=== PATIENT | female | born 1945 | race Caucasian/White ===

== ENCOUNTER 2016-10-02 10:18 | Emergency (ER) | payer OTHER ==
[~2016-10-02] VITALS: Ht 162.6 cm; Wt 71.0 kg
[~2016-10-02 10:18] MED LIST: ASPI81TA82 PO; CARD120C4 PO; LEVO.1 PO; SYNT137T PO
[2016-10-02 10:21] VITALS: BP 133/76; PULSE 76; RESP 16; TEMP 97.8; O2SAT 97
[2016-10-02] MEDS ORDERED: AZIT500T2 PO (10:44)
[2016-10-02] MEDS ORDERED: ATOR40TA16 PO (10:44)
[2016-10-02] MEDS ORDERED: LEVO.125 PO (10:44)
[2016-10-02] MEDS ORDERED: ASPI1TAB69 PO (10:44)
[2016-10-02] MEDS ORDERED: SODIUM CHLORIDE 0.9% FLUSH 5 ML FLUSH IVF PRN (11:00)
[2016-10-02] MEDS ORDERED: SODIUM CHLOR 0.9% 1000 ML INJ 1,000 ML IV ONE (11:00)
[2016-10-02 11:02] VITALS: RESP 16; O2SAT 97
--- NOTE | 2016-10-02 11:05 | PD ---
HPI Chief Complaint: General Weakness Time Seen by Provider: 10:40 Travel History International Travel<30 days: No Contact w/Intl Traveler<30days: No Traveled to known affect area: No History of Present Illness HPI The patient is a 70-year-old female who presents to the emergency department for generalized weakness. The patient states she developed cough and cold symptoms 1 week ago with a dry nonproductive cough, chills, body aches , and subsequent diarrhea. The patient does note decreased appetite without any nausea or vomiting. The patient describes her diarrhea as loose, one to 2 episodes every several hours, slightly improving over the last 24 hours. The patient was seen by a physician in urgent care office, Dr. Brizuela, and administered 3 doses of Rocephin and placed on Zithromax for one week. However , patient states her symptoms continue. The patient states she has had a decreased appetite, was able to eat a fish sandwich yesterday, but only had water this morning with her pills. Patient denies any vomiting or abdominal pain. The patient did not receive an influenza vaccination or pneumococcal vaccination this year. The patient's primary physician resides in [place]. PFSH Past Medical History Hx Anticoagulant Therapy: Yes (81 MG ASA) Cardiovascular Problems: Yes (AFIB) High Cholesterol: Yes Diminished Hearing: No Thyroid Disease: Yes Influenza Vaccination: No ?: Not Past Surgical History Cholecystectomy: Yes Gynecologic Surgery: Yes (PROLAPSED UTERUS WITH MESH) Social History Alcohol Use: Yes (2 VODKA TONIC MÁRQUEZ) Tobacco Use: No Substance Use: No Allergies-Medications (Allergen,Severity, Reaction): Coded Allergies: No Known Allergies (Unverified , 10/02/16) Reported Meds & Prescriptions Reported Meds & Active Scripts Active Reported Atorvastatin (Atorvastatin Calcium) 40 Mg Tab 40 Mg PO HS Azithromycin 500 Mg Tab 500 Mg PO DAILY Synthroid (Levothyroxine Sodium) 125 Mcg Tab 125 Mcg PO DAILY Aspirin 81 Mg Tabdr 81 Mg PO DAILY Review of Systems Except as stated in HPI: all other systems reviewed are Neg General / Constitutional: Positive: Chills, No: Fever Cardiovascular: No: Chest Pain or Discomfort Respiratory: Positive: Cough, No: Shortness of Breath Gastrointestinal: Positive: Diarrhea, No: Nausea, Vomiting Musculoskeletal: Positive: Myalgias (initially had myalgias which have resolved ), Weakness Skin: No Rash Neurologic: Positive: Weakness Physical Exam Narrative GENERAL: Awake, alert, nontoxic-appearing 70-year-old female who appears her stated age and is in no acute respiratory distress. SKIN: Warm and dry. HEAD: Atraumatic. Normocephalic. EYES: Pupils equal and round. No scleral icterus. No injection or drainage. ENT: No nasal bleeding or discharge. Mucous membranes pink and moist. No erythema or exudate noted. TMs are translucent and EACs are clear. NECK: Trachea midline. No JVD. CARDIOVASCULAR: Regular rate and rhythm. No murmur appreciated. RESPIRATORY: No accessory muscle use. Clear to auscultation. Breath sounds equal bilaterally. GASTROINTESTINAL: Abdomen soft, non-tender, nondistended. Well-healed midline scar inferior to the umbilicus. No rebound tenderness. MUSCULOSKELETAL: No obvious deformities. No clubbing. No cyanosis. No edema. NEUROLOGICAL: Awake and alert. No obvious cranial nerve deficits. Motor grossly within normal limits. Normal speech. PSYCHIATRIC: Appropriate mood and affect; insight and judgment normal. Data Data Last Documented VS Vital Signs Date Time Temp Pulse Resp B/P Pulse Ox O2 Delivery O2 Flow Rate FiO2 10/02/16 12:03 Room Air 10/02/16 12:03 68 16 134/60 100 10/02/16 10:21 97.8 Orders Complete Blood Count With Diff (10/02/16 10:59) Comprehensive Metabolic Panel (10/02/16 10:59) Magnesium (Mg) (10/02/16 10:59) Ckmb (Isoenzyme) Profile (10/02/16 10:59) Troponin I (10/02/16 10:59) Urinalysis - C+S If Indicated (10/02/16 10:59) Iv Access Insert/Monitor (10/02/16 10:59) Electrocardiogram (10/02/16 10:59) Ecg Monitoring (10/02/16 10:59) Oximetry (10/02/16 10:59) Oxygen Administration (10/02/16 10:59) Chest, Single Ap (10/02/16 10:59) Sodium Chloride 0.9% Flush (Ns Flush) (10/02/16 11:00) Sodium Chlor 0.9% 1000 Ml Inj (Ns 1000 M (10/02/16 11:00) CKMB (10/02/16 11:15) CKMB% (10/02/16 11:15) Labs Laboratory Tests Test 10/02/16 10/02/16 11:15 12:01 White Blood Count 3.2 TH/MM3 Red Blood Count 4.83 MIL/MM3 Hemoglobin 14.1 GM/DL Hematocrit 43.1 % Mean Corpuscular Volume 89.2 FL Mean Corpuscular Hemoglobin 29.2 PG Mean Corpuscular Hemoglobin 32.7 % Concent Red Cell Distribution Width 12.8 % Platelet Count 252 TH/MM3 Mean Platelet Volume 6.9 FL Neutrophils (%) (Auto) 46.3 % Lymphocytes (%) (Auto) 39.1 % Monocytes (%) (Auto) 11.9 % Eosinophils (%) (Auto) 2.2 % Basophils (%) (Auto) 0.5 % Neutrophils # (Auto) 1.4 TH/MM3 Lymphocytes # (Auto) 1.3 TH/MM3 Monocytes # (Auto) 0.4 TH/MM3 Eosinophils # (Auto) 0.1 TH/MM3 Basophils # (Auto) 0.0 TH/MM3 CBC Comment DIFF FINAL Differential Comment Sodium Level 141 MEQ/L Potassium Level 3.9 MEQ/L Chloride Level 105 MEQ/L Carbon Dioxide Level 27.7 MEQ/L Anion Gap 8 MEQ/L Blood Urea Nitrogen 9 MG/DL Creatinine 0.72 MG/DL Estimat Glomerular Filtration 80 ML/MIN Rate Random Glucose 99 MG/DL Calcium Level 8.7 MG/DL Magnesium Level 2.0 MG/DL Total Bilirubin 0.3 MG/DL Aspartate Amino Transf 25 U/L (AST/SGOT) Alanine Aminotransferase 26 U/L (ALT/SGPT) Alkaline Phosphatase 63 U/L Total Creatine Kinase 304 U/L Creatine Kinase MB 1.7 NG/ML Creatine Kinase MB % 0.6 % Troponin I LESS THAN 0.02 NG/ML Total Protein 7.5 GM/DL Albumin 3.6 GM/DL Urine Collection Type CLEAN CATCH Urine Color YELLOW Urine Turbidity CLEAR Urine pH 5.5 Urine Specific [place] 1.022 Urine Protein NEG mg/dL Urine Glucose (UA) NEG mg/dL Urine Ketones TRACE mg/dL Urine Occult Blood TRACE Urine Nitrite NEG Urine Bilirubin NEG Urine Leukocyte Esterase NEG Urine RBC 4-9 /hpf Urine WBC 0-2 /hpf Urine Squamous Epithelial 0-5 /hpf Cells Microscopic Urinalysis Comment CULT NOT INDICATED Urine Collection Time 12:01 [facility] Medical Decision Making Medical Screen Exam Complete: Yes Emergency Medical Condition: Yes Medical Record Reviewed: Yes Interpretation(s) EKG reveals normal sinus rhythm with a rate of 60. No ischemic changes or ectopy noted. Laboratory Tests Test 10/02/16 10/02/16 11:15 12:01 White Blood Count 3.2 TH/MM3 Red Blood Count 4.83 MIL/MM3 Hemoglobin 14.1 GM/DL Hematocrit 43.1 % Mean Corpuscular Volume 89.2 FL Mean Corpuscular Hemoglobin 29.2 PG Mean Corpuscular Hemoglobin 32.7 % Concent Red Cell Distribution Width 12.8 % Platelet Count 252 TH/MM3 Mean Platelet Volume 6.9 FL Neutrophils (%) (Auto) 46.3 % Lymphocytes (%) (Auto) 39.1 % Monocytes (%) (Auto) 11.9 % Eosinophils (%) (Auto) 2.2 % Basophils (%) (Auto) 0.5 % Neutrophils # (Auto) 1.4 TH/MM3 Lymphocytes # (Auto) 1.3 TH/MM3 Monocytes # (Auto) 0.4 TH/MM3 Eosinophils # (Auto) 0.1 TH/MM3 Basophils # (Auto) 0.0 TH/MM3 CBC Comment DIFF FINAL Differential Comment Sodium Level 141 MEQ/L Potassium Level 3.9 MEQ/L Chloride Level 105 MEQ/L Carbon Dioxide Level 27.7 MEQ/L Anion Gap 8 MEQ/L Blood Urea Nitrogen 9 MG/DL Creatinine 0.72 MG/DL Estimat Glomerular Filtration 80 ML/MIN Rate Random Glucose 99 MG/DL Calcium Level 8.7 MG/DL Magnesium Level 2.0 MG/DL Total Bilirubin 0.3 MG/DL Aspartate Amino Transf 25 U/L (AST/SGOT) Alanine Aminotransferase 26 U/L (ALT/SGPT) Alkaline Phosphatase 63 U/L Total Creatine Kinase 304 U/L Creatine Kinase MB 1.7 NG/ML Creatine Kinase MB % 0.6 % Troponin I LESS THAN 0.02 NG/ML Total Protein 7.5 GM/DL Albumin 3.6 GM/DL Urine Collection Type CLEAN CATCH Urine Color YELLOW Urine Turbidity CLEAR Urine pH 5.5 Urine Specific [place] 1.022 Urine Protein NEG mg/dL Urine Glucose (UA) NEG mg/dL Urine Ketones TRACE mg/dL Urine Occult Blood TRACE Urine Nitrite NEG Urine Bilirubin NEG Urine Leukocyte Esterase NEG Urine RBC 4-9 /hpf Urine WBC 0-2 /hpf Urine Squamous Epithelial 0-5 /hpf Cells Microscopic Urinalysis Comment CULT NOT INDICATED Urine Collection Time 12:01 Last Impressions Chest X-Ray 10/02/16 1059 Signed Impressions: Service Date/Time: September 11:17 - CONCLUSION: 1. No acute cardiopulmonary findings. Umesh Poon MD Differential Diagnosis Differential diagnosis includes pneumonia, dehydration, viral syndrome, influenza, hyponatremia, pyelonephritis, acute coronary syndrome. Narrative Course IV was established, labs were drawn and sent, and the patient was placed on cardiac telemetry monitoring and continuous pulse oximetry monitoring. EKG was ordered and interpreted. Chest x-ray was obtained. The patient was administered 1 L of IV fluids. Chest x-rays negative. Laboratory vision reveals white count slightly low at 3.2 with elevation monocytes, most likely viral. UA reveals trace ketones and blood. Kidney function and LFTs are unremarkable. The patient was administered IV fluids with improvement of her symptoms. The patient is advised to finish her Zithromax and follow-up with her primary physician. She will be provided a copy of her labs and x-ray findings at discharge. Diagnosis Primary Impression: Viral syndrome Patient Instructions: General Instructions Additional Instructions: Finish Zithromax as previously directed. Plenty of fluids to stay hydrated. Clear liquid diet and advance as tolerated. Return if symptoms worsen or progress. Please provide the patient a copy of her lab results and x-ray results at discharge. Med/Other Pt SpecificInfo: No Change to Meds Disposition: 01 DISCHARGE HOME Condition: Stable Con Stanton MD Oct 02, 2016 11:04
[2016-10-02 11:20] VITALS: BP 134/70; PULSE 66; RESP 16; O2SAT 98
[2016-10-02 11:26] LABS: AUTOMATED NEUTROPHIL # 1.4 TH/MM3 (1.8-7.7); BASOPHIL % 0.5 % (0.0-2.0); EOSINOPHIL # 0.1 TH/MM3 (0-0.4); EOSINOPHIL % 2.2 % (0.0-4.0); HEMATOCRIT 43.1 % (35.0-46.0); HEMO FLAGS DIFF FINAL; LYMPH % 39.1 % (9.0-44.0); LYMPHOCYTE # 1.3 TH/MM3 (1.0-4.8); MEAN CELL VOLUME 89.2 FL (80.0-100.0); MEAN CORPUSCULAR HEMOGLOBIN 29.2 PG (27.0-34.0); MEAN CORPUSCULAR HGB CONC 32.7 % (32.0-36.0); MONO % 11.9 % (0.0-8.0); NEUT % 46.3 % (16.0-70.0); PLATELET COUNT 252 TH/MM3 (150-450); RED BLOOD COUNT 4.83 MIL/MM3 (4.00-5.30); RED CELL DISTRIBUTION WIDTH 12.8 % (11.6-17.2); WHITE BLOOD COUNT 3.2 TH/MM3 (4.0-11.0)
--- NOTE | 2016-10-02 11:32 | RADHPO ---
EXAM DATE/TIME: 10/02/2016 11:17 [facility] COMPARISON: CHEST SINGLE AP, November 01, 2014, 19:54. INDICATIONS : Coughing, general weakness and diarrhea for 6 days. MEDICAL HISTORY : bronchitits SURGICAL HISTORY : None. ENCOUNTER: Initial ACUITY: 4 - 6 days PAIN SCORE: 0/10 LOCATION: Bilateral chest FINDINGS: A single view of the chest demonstrates the lungs to be symmetrically aerated without evidence of mas s, infiltrate or effusion. The cardiomediastinal contours are unremarkable. Osseous structures are intact. CONCLUSION: 1. No acute cardiopulmonary findings. Umesh Poon MD on October 02, 2016 at 11:29 Board Certified Radiologist. This report was verified electronically.
[2016-10-02 11:33] LABS: CHLORIDE 105 MEQ/L (98-107); POTASSIUM 3.9 MEQ/L (3.5-5.1); SODIUM (NA) 141 MEQ/L (136-145)
[2016-10-02 11:37] LABS: ANION GAP 8 MEQ/L (5-15); BICARBONATE 27.7 MEQ/L (21.0-32.0); BLOOD UREA NITROGEN 9 MG/DL (7-18)
[2016-10-02 11:40] LABS: ALT (GPT) 26 U/L (10-53); AST (GOT) 25 U/L (15-37); GLOMERULAR FILTRATION RATE 80 ML/MIN (>89)
[2016-10-02 11:42] LABS: TOTAL BILIRUBIN ADULT 0.3 MG/DL (0.2-1.0)
[2016-10-02 11:43] LABS: ALKALINE PHOSPHATASE 63 U/L (45-117); CREATINE KINASE 304 U/L (26-192)
[2016-10-02 11:55] LABS: CKMB 1.7 NG/ML (0.5-3.6)
[2016-10-02 12:03] VITALS: BP 134/60; PULSE 68; RESP 16; O2SAT 100
[2016-10-02 12:07] LABS: BLOOD, URINE TRACE (NEG); GLUCOSE,URINE NEG (NEG); KETONE, URINE TRACE mg/dL (NEG); NITRITE,URINE NEG (NEG); PH, URINE 5.5 (5.0-8.5)
[2016-10-02 12:11] LABS: METHOD OF COLLECTION CLEAN CATCH; URINE COLOR YELLOW (YELLW/STRAW)
[2016-10-02 12:12] LABS: COMMENT (UR) CULT NOT INDICATED; CULTURE IF INDICATED CULT NOT INDICATED; SQUAMOUS EPITHELIAL CELL URINE 0-5 /hpf (0-5); WBC, URINE 0-2 /hpf (0-5)
--- NOTE | 2016-10-03 17:09 | EKG ---
Date Performed: 10/02/2016 Time Performed: 11:06:48 PTAGE: 70 years EKG: Sinus rhythm Compared to prior tracing no significant change Normal ECG PREVIOUS TRACING : 11/01/2014 20.30 DOCTOR: Enoch Pelaez Interpretating Date/Time 10/03/2016 17:00:02
== END 2016-10-02 12:55 | disposition home or self-care (01) ==
LOC: PHED 10:18
DX: B34.9 Viral infection, unspecified (principal); I48.91 Unspecified atrial fibrillation; E78.00 Pure hypercholesterolemia, unspecified; F10.10 Alcohol abuse, uncomplicated; Z79.82 Long term (current) use of aspirin
CPT/HCPCS: 71010; 80053; 81001; 82550; 82552; 83735; 84484; 85025; 93005; 96360; 99285; J7030